=== PATIENT | male | born 1985 | race Caucasian/White ===

== ENCOUNTER 2017-09-09 04:05 | Emergency (ER) | payer MEDICAID ==
[~2017-09-09] VITALS: Ht 172.7 cm; Wt 86.2 kg
[2017-09-09 04:05] VITALS: BP 141/99
--- NOTE | 2017-09-09 04:05 | NUR ---
31/M BIBA FOR DIFFICULTY BREATHING. PER EMS PT WAS DIAPHORETIC, DYSPNEIC, UNRESPONSIVE AND POSTURING ON SCENCE, SATS 80'S RA. PT IS A/O X4, VERBAL WITH ABILITY TO SPEAK AT FULL LENGTH AND ON NONREBREATHER SATS 100%. PT REPORTS HE WAS AWAKEN WITH A PAIN IN THE THROAT AND DIFFICULTY SWALLOWING. REPORTS LAST INGESTED WAS FISH, NO PREVIOUS HISTORY OF ALLERGIES, DENIES EXPOSURE TO ALLERGENS/CHEMICALS. ALL LUNG SOUNDS CBTA, 18RR EVEN AND UNLABORED. NO S/S OF ANGIOEDEMA. PT PLACED ON MARKETING OPERATIONS ASSISTANT.ER MD CARRANZA AT BEDSIDE PMH: HTN, HLD, DM II
[2017-09-09] MEDS ORDERED: NACL 0.9% 1,000 ML IV ONE ×3 (04:10→08:35)
[2017-09-09 04:33] LABS: BASOPHILS # (AUTO) 0.5 K/uL (0.00-0.22); BASOPHILS % (AUTO) 2.5 % (0.0-2.0); EOSINOPHILS # (AUTO) 0.2 K/uL (0-0.4); EOSINOPHILS % (AUTO) 0.9 % (0.0-4.0); HEMATOCRIT 43.6 % (36-52); HEMOGLOBIN 14.6 g/dL (12.0-18.0); LYMPHOCYTES # (AUTO) 2.2 K/uL (2.0-11.5); LYMPHOCYTES % (AUTO) 10.2 % (20.5-51.1); MEAN CORPUSCULAR HEMOGLOBIN 31 pg (27-31); MEAN CORPUSCULAR HGB CONC 34 g/dL (33-37); MEAN CORPUSCULAR VOLUME 92 fL (80-94); MONOCYTES # (AUTO) 1.6 K/uL (0.8-1.0); MONOCYTES % (AUTO) 7.7 % (1.7-9.3); NEUTROPHILS # (AUTO) 16.8 K/uL (1.8-7.7); NEUTROPHILS % (AUTO) 78.7 % (42.2-75.2); PLATELET COUNT (AUTO) 384 K/uL (140-450); RED BLOOD CELL COUNT(AUTO) 4.72 MIL/uL (4.20-6.10); RED CELL DISTRIBUTION WIDTH 11.7 % (11.6-13.7)
[2017-09-09 04:44] LABS: APPEARANCE,URINE CLEAR (CLEAR); BILIRUBIN,URINE NEGATIVE (NEGATIVE); BLOOD, URINE TRACE-L (NEGATIVE); COLOR,URINE YELLOW (YELLOW); LEUKOCYTE ESTERASE ,URINE NEGATIVE (NEGATIVE); NITRITE, URINE NEGATIVE (NEGATIVE); PH,URINE 5.5 (5.0-9.0); UGLUCOSE 3+ (NEGATIVE)
[2017-09-09 04:48] LABS: LIPASE 146 U/L (73-393)
[2017-09-09 04:53] LABS: ALBUMIN 3.5 g/dL (3.4-5.0); ANION GAP 18.7 (8-16); CARBON DIOXIDE 22.4 mmol/L (21-32); CREATININE 0.9 mg/dL (0.7-1.3); POTASSIUM 3.1 mmol/L (3.5-5.1); TOTAL BILIRUBIN 0.4 mg/dL (0.0-1.0)
[2017-09-09 05:04] LABS: WHITE BLOOD COUNT (AUTO) 21.3 K/uL (4.8-10.8)
[2017-09-09 05:05] LABS: HYALINE CASTS, URINE 0-10 /LPF (None Seen); RBC,URINE 0-5 (RARE) /HPF (0-5); URINE AMORPHOUS URATE 2+ /HPF (None Seen); WBC,URINE 0-5 (RARE) /HPF (0-5)
--- NOTE | 2017-09-09 05:10 | NUR ---
PT PLACED ON ROOM AIR, SATS 100%, 92 HR. ER MD CARRANZA MADE AWARE
[2017-09-09 05:25] LABS: ACETONE, SERUM SMALL (NEGATIVE)
--- NOTE | 2017-09-09 06:00 | NUR ---
Patient appears to be resting comfortably in bed. Vital Signs within normal limits. Respirations even and unlabored.
[2017-09-09 06:31] LABS: BARBITURATE, URINE NEG. ng/ml (NEG <=200); BENZODIAZEPINE, URINE NEG. ng/mL (NEG <=200); CANNABINOID, URINE NEG. ng/mL (NEG <=50); COCAINE, URINE NEG. ng/mL (NEG <=300); OPIATE, URINE NEG. ng/mL (NEG <=2000); PHENCYCLIDINE SCREEN,URINE NEG. ng/mL (NEG <=25)
--- NOTE | 2017-09-09 07:23 | NUR ---
RECEIVED REPORT FROM OREN VAZQUEZ.
--- NOTE | 2017-09-09 07:23 | NUR ---
Pt report given to TAMI LOTT. Transfer of care at this time.
--- NOTE | 2017-09-09 07:33 | NUR ---
PT TAKEN TO CT VIA W/C ACCOMPANIED BY [employer] WORKER.
--- NOTE | 2017-09-09 08:08 | NUR ---
BACK FROM CT; AAO X4.
--- NOTE | 2017-09-09 08:27 | NUR ---
DR LO REEVALUATING PT AT BEDSIDE.
[2017-09-09] MEDS ORDERED: DEXAMETHASONE 10 MG/ML VIAL IVP ONE (08:30)
[2017-09-09] MEDS ORDERED: CLINDAMYCIN 900 MG in DEXTROSE 5% 100 ML IV ONE (08:30)
[2017-09-09] MEDS ORDERED: CLINDAMYCIN 900 MG/6 ML VIAL IV ONE (08:36)
--- NOTE | 2017-09-09 09:11 | NUR ---
GAVE REPORT TO OREN DUMONT, [facility].
--- NOTE | 2017-09-09 09:25 | NUR ---
Patient appears to be resting comfortably in bed. BP 123/78, PULSE OX 100%, Respirations even and unlabored.WILL CONTINUE TO MONITOR.
[2017-09-09 10:00] VITALS: BP 123/78
--- NOTE | 2017-09-09 10:00 | NUR ---
Patient to be transferred to ER [facility]. Is being transferred due to HIGH LEVEL. Receiving facility has accepting physician and available space. ER physician has signed transfer form. Patient or responsible green party has agreed to transfer and signed form. Patient belongings inventoried and will be sent with patient. Copy of nursing notes, lab reports, EKG, Physicians Orders and X-rays to be sent with patient. Report called to OREN DUMONT at receiving facility. [facility] service has been called for transfer. ETA is [facility].
--- NOTE | 2017-09-16 09:48 | NUR ---
CRARIFIED; CLINDAMYCIN 900 MG IN DEXTROSE 5% 100ML : STARTED TIME 09/09/17 08.44 AM AND END TIME 09/09/17 AT 09.44 AM.
--- NOTE | 2017-09-16 09:48 | NUR ---
Sin watkins in EDM - 09/16/17 at 0951 by [email or web address] CRARIFIED; END TIME CLINDAMYCIN 09/09/17 AT 09.44 AM.
== END 2017-09-09 10:00 | disposition short-term general hospital (02) ==
LOC: MED 04:05
DX: J36 Peritonsillar abscess (principal); R06.00 Dyspnea, unspecified; R09.02 Hypoxemia; A41.9 Sepsis, unspecified organism; E11.65 Type 2 diabetes mellitus with hyperglycemia; E87.6 Hypokalemia; E87.1 Hypo-osmolality and hyponatremia; I10 Essential (primary) hypertension
CPT/HCPCS: 36415; 70450; 70491; 71045; 71275; 80053; 80305; 81001; 82009; 82948; 83605; 83690; 83880; 84484; 85025; 85379; 87040; 96361; 96365; 96375; 99291; J1100; J3490; J7030; Q0092; Q9967; 99285